=== PATIENT | male | born 1995 | race Hispanic/Latino ===

== ENCOUNTER 2025-06-24 17:44 | Emergency (ER) | payer OTHER ==
[~2025-06-24] VITALS: Ht 175.3 cm; Wt 104.3 kg
[2025-06-24] MEDS ORDERED: CIPOTIC OTIC (18:12)
--- NOTE | 2025-06-24 18:12 | ERN ---
General Chief Complaint: Foreignbody Ear Stated Complaint: BUG IN RT EAR Time Seen by MD: 17:46 Time Seen by Midlevel: 17:46 Source: patient History of Present Illness Initial Comments 30-year-old male presents to the ER with a foreign body sensation to his right ear. Patient believes he may have a bug lodged in his ear. Allergies: Coded Allergies: No Known Allergies (Unverified Allergy, Unknown, 06/24/25) Home Meds Active Scripts Ciprofloxacin HCl/Hc (Cipro Hc Otic Susp) 0.2 %-1 % Otsus, 3 DROP OTIC BID for 7 Days, #10 ML 0 Refills Prov:SHARON MONK 06/24/25 Past Medical History Past Medical History: No Pertinent History Past Surgical History: None ROS Dictation CONSTITUTIONAL: Negative except for HPI HEAD/FACE: Negative except for HPI EENT: Negative except for HPI RESPIRATORY: Negative except for HPI GASTROINTESTINAL/ABDOMINAL: Negative except for HPI GENITOURINARY: Negative except for HPI MUSCULOSKELETAL: Negative except for HPI INTEGUMENTARY: Negative except for HPI NEUROLOGICAL/PSYCH: Negative except for HPI HEMATOLOGIC/LYMPHATIC: Negative except for HPI All Systems Negative, Except as noted above. 13 point review of systems assessed and all negative except for above. Physical Exam Physical Exam Dictation PHYSICAL EXAM: GENERAL: alert,, awake oriented x 3 HEENT: EOMI, Sclera non icteric, moist mucosa NECK: Supple, no JVD, trachea midline LUNGS: Clear breath sounds bilaterally. No wheezes HEART: Regular rate and rhythm. Normal S1 and S2, without murmurs ABD: Abdomen soft, nontender. Bowel sounds present EXT: No clubbing or cyanosis, NEURO: Alert and oriented to person, follows commands MDM MDM: 30-year-old male presenting to the ER with a foreign body sensation to the right ear. On physical examination ENT examination is unremarkable. No foreign body noted in right ear. However given that there was a possibility of bug to his right ear I will start him on antibiotic eardrops for prophylactic treatment. Differential diagnosis: Foreign body, otitis media, otitis externa There are no social concerns with this patient. Prescription drug management Prescriptions will include: Ciprofloxacin Medical management and examination interpretation discussions were had by me with other qualified healthcare professionals as indicated for the patient's care. ED Course Vital Signs Date Time Temp Pulse Resp B/P (MAP) Pulse Ox O2 Delivery O2 Flow Rate FiO2 06/24/25 17:45 97.9 90 16 143/83 99 Room Air DX & DISP Disposition: Discharge Departure Impression: Primary Impression: Foreign body sensation in right ear canal Condition: Stable Scripts Ciprofloxacin HCl/Hc (Cipro Hc Otic Susp) 0.2 %-1 % Otsus 3 DROP OTIC BID for 7 Days, #10 ML 0 Refills Prov: SHARON MONK 06/24/25 Referrals: SELF,REFERRAL (PCP) I have reviewed the case, and I agree with I performed the substantive portion of the visit. I have reviewed and personally made and approve the management plan that is documented in the note by myself or the ANY. I acknowledge for responsibility for the patient's management plan. SHARON MONK Jun 24, 2025 18:12
[2025-06-24 18:17] VITALS: BP 137/79; PULSE 90; RESP 18; TEMP 98.2; O2SAT 100
== END 2025-06-24 18:18 | disposition home or self-care (01) ==
LOC: EDH 17:44
DX: R09.A0 Foreign body sensation, unspecified (principal)
CPT/HCPCS: 99283